=== PATIENT | male | born 1930 | race Caucasian/White ===

== ENCOUNTER → 2018-01-24 | Outpatient (CLI) | payer MEDICARE, BC ==
[~2018-01-24] MED LIST: COR12 PO; FINA5TAB11 PO; FURO40TA5 PO; SPIR25TA4 PO; [UNRECOGNIZED DRUG - OTHER]; [UNRECOGNIZED DRUG - OTHER]
== END | disposition home or self-care (01) ==
LOC: CT 08:31
PROVIDERS: ATTEND Psychiatry & Neurology Neurology
DX: I67.82 Cerebral ischemia (principal); M48.02 Spinal stenosis, cervical region; M48.061 Spinal stenosis, lumbar region without neurogenic claudication; M51.36 Other intervertebral disc degeneration, lumbar region
CPT/HCPCS: 70450; 72125; 72131

== ENCOUNTER → 2018-01-28 | Outpatient (CLI) | payer MEDICARE, BC | END | disposition home or self-care (01) | LOC: RAD 11:51 | PROVIDERS: ATTEND Specialist | DX: R06.02 Shortness of breath (principal); Z95.810 Presence of automatic (implantable) cardiac defibrillator | CPT/HCPCS: 71046 ==

== ENCOUNTER 2018-02-09 15:18 | Emergency (ER) | payer MEDICARE, BC ==
[~2018-02-09] VITALS: Ht 182.9 cm; Wt 73.0 kg
[2018-02-09 15:54] LABS: BASOPHILS % 0.2 % (0.0-2.0); EOSINOPHILS % 0.5 % (0.0-5.0); HEMATOCRIT. 35.5 % (42.0-52.0); HEMOGLOBIN. 12.1 g/dL (14.0-18.0); LYMPHOCYTES % 14.5 % (20.0-50.0); MEAN CORPUSCULAR HEMOGLOBIN 32.3 pg (28.0-32.0); MEAN CORPUSCULAR VOLUME 94.6 fL (80.0-94.0); MEAN PLATELET VOLUME 9.7 fl (7.4-10.4); MONOCYTES % 12.1 % (2.0-8.0); NEUTROPHILS % 72.7 % (40.0-76.0); PLATELET 159 x1000/uL (130-400); RED BLOOD CELL COUNT 3.75 mill/uL (4.7-6.1); RED CELL DISTRIBUTION WIDTH 13.4 % (11.6-14.6)
[2018-02-09 15:57] LABS: CHLORIDE 103 mEq/L (98-107)
[2018-02-09] MEDS ORDERED: TRAMADOL 50MG TABLET PO ONE (16:00)
[2018-02-09] MEDS ORDERED: ONDANSETRON 4MG ODT PO ONE (16:00)
[2018-02-09 16:01] LABS: PARTIAL THROMBOPLASTIN TIME 24.7 sec (23.4-31.0); PROTHROMBIN TIME 10.4 sec (9.4-11.6)
[2018-02-09 17:04] VITALS: BP 136/70
== END 2018-02-09 17:56 | disposition home or self-care (01) ==
LOC: ER 16:20
DX: M54.12 Radiculopathy, cervical region (principal); M48.02 Spinal stenosis, cervical region; R11.2 Nausea with vomiting, unspecified; I10 Essential (primary) hypertension; Z95.0 Presence of cardiac pacemaker; Z95.810 Presence of automatic (implantable) cardiac defibrillator
CPT/HCPCS: 36415; 71045; 80053; 83690; 83880; 84443; 85025; 85610; 85730; 93005; 99285; Q0162

== ENCOUNTER 2018-07-10 16:20 | Inpatient (IN) | payer MEDICARE, BC ==
[~2018-07-10] VITALS: Ht 182.9 cm; Wt 72.1 kg
[~2018-07-10 16:20] MED LIST changes: -SPIR25TA4 PO; +SPIR25TA6 PO
[2018-07-10 16:25] VITALS: BP 122/77
[2018-07-10 17:50] VITALS: BP 122/77
[2018-07-10] MEDS ORDERED: CLONIDINE 0.1MG TABLET PO PRN (18:30)
[2018-07-10] MEDS ORDERED: CLONIDINE 0.2MG TABLET PO PRN (18:30)
[2018-07-10 20:00] VITALS: BP 119/75
[2018-07-10 20:06] LABS: CHLORIDE 102 mEq/L (98-107)
[2018-07-10 20:35] VITALS: BP 134/81
[2018-07-10] MEDS: FAMOTIDINE 20MG TABLET PO SCH (21:11)
[2018-07-10] MEDS: CARVEDILOL 12.5MG TABLET PO SCH (21:11)
[2018-07-10] MEDS: AMIODARONE HCL 200 MG TABLET PO SCH (21:58)
[2018-07-11] MEDS ORDERED: AMIODARONE HCL 200 MG TABLET PO SCH (06:00)
[2018-07-11 07:08] LABS: PARTIAL THROMBOPLASTIN TIME 26.6 sec (23.4-31.0); PROTHROMBIN TIME 10.3 sec (9.1-11.1)
[2018-07-11 07:09] LABS: BASOPHILS % 0.2 % (0.0-2.0); EOSINOPHILS % 0.6 % (0.0-5.0); HEMATOCRIT. 33.9 % (42.0-52.0); HEMOGLOBIN. 11.5 g/dL (14.0-18.0); LYMPHOCYTES % 12.5 % (20.0-50.0); MEAN CORPUSCULAR HEMOGLOBIN 32.3 pg (28.0-32.0); MEAN CORPUSCULAR VOLUME 95.1 fL (80.0-94.0); NEUTROPHILS % 73.7 % (40.0-76.0); PLATELET 147 x1000/uL (130-400); RED BLOOD CELL COUNT 3.57 mill/uL (4.7-6.1); RED CELL DISTRIBUTION WIDTH 13.3 % (11.6-14.6)
[2018-07-11 07:49] LABS: CHLORIDE 104 mEq/L (98-107)
[2018-07-11 08:06] VITALS: BP 84/47
[2018-07-11 08:11] LABS: PHOSPHORUS 3.2 mg/dL (2.5-4.9)
[2018-07-11] MEDS ORDERED: ACETAMINOPHEN 325MG TABLET PO PRN (09:00)
[2018-07-11] MEDS: CARVEDILOL 12.5MG TABLET PO SCH ×2 (09:00→20:52)
[2018-07-11] MEDS: SPIRONOLACTONE 25MG TABLET PO SCH ×2 (09:00→17:00)
[2018-07-11] MEDS: AMIODARONE HCL 200 MG TABLET PO SCH ×2 (09:47→20:53)
[2018-07-11] MEDS: ASPIRIN 81MG EC TABLET PO SCH (09:48)
[2018-07-11] MEDS: DOCUSATE SODIUM 250MG CAPSULE PO SCH ×2 (09:48→17:55)
[2018-07-11] MEDS: FINASTERIDE 5MG TABLET PO SCH (09:48)
[2018-07-11] MEDS: FUROSEMIDE 40MG TABLET PO SCH (09:48)
[2018-07-11] MEDS: ENTRESTO PO SCH (09:49)
[2018-07-11 10:28] VITALS: BP_SYST 107; BP_SYST 132; BP_SYST 133; BP_DIAS 60; BP_DIAS 74; BP_DIAS 76
[2018-07-11 20:00] VITALS: BP 95/57
[2018-07-11] MEDS: FAMOTIDINE 20MG TABLET PO SCH (20:53)
[2018-07-12 08:00] VITALS: BP 108/62
[2018-07-12] MEDS: FINASTERIDE 5MG TABLET PO SCH (08:54)
[2018-07-12] MEDS: DOCUSATE SODIUM 250MG CAPSULE PO SCH ×2 (08:54→17:35)
[2018-07-12] MEDS: ASPIRIN 81MG EC TABLET PO SCH (08:54)
[2018-07-12] MEDS: SPIRONOLACTONE 25MG TABLET PO SCH ×2 (08:55→17:35)
[2018-07-12] MEDS: FUROSEMIDE 40MG TABLET PO SCH (08:55)
[2018-07-12] MEDS: AMIODARONE HCL 200 MG TABLET PO SCH ×2 (08:55→20:56)
[2018-07-12] MEDS: CARVEDILOL 12.5MG TABLET PO SCH ×2 (08:56→20:56)
[2018-07-12] MEDS: ENTRESTO PO SCH (09:01)
[2018-07-12] MEDS ORDERED: LACTULOSE 20G/30ML UDC PO PRN (13:00)
[2018-07-12] MEDS: LACTULOSE 20G/30ML UDC PO SCH ×3 (13:15→20:57)
[2018-07-12 16:00] VITALS: BP_SYST 106; BP_SYST 91; BP_SYST 96; BP_DIAS 54; BP_DIAS 56; BP_DIAS 63
[2018-07-12] MEDS: DOCUSATE SODIUM 100MG CAPSULE PO SCH (17:35)
[2018-07-12 20:00] VITALS: BP 93/54
[2018-07-12] MEDS: FAMOTIDINE 20MG TABLET PO SCH (20:56)
[2018-07-12] MEDS: POLYETHYLENE GLYCOL 3350 (17GM) 1 DOSE PACK PO SCH (20:57)
[2018-07-13 07:38] LABS: HEMATOCRIT. 35.8 % (42.0-52.0); HEMOGLOBIN. 11.8 g/dL (14.0-18.0); MEAN CORPUSCULAR HEMOGLOBIN 31.9 pg (28.0-32.0); MEAN CORPUSCULAR VOLUME 96.4 fL (80.0-94.0); MEAN PLATELET VOLUME 10.5 fl (7.4-10.4); PLATELET 147 x1000/uL (130-400); RED BLOOD CELL COUNT 3.72 mill/uL (4.7-6.1); RED CELL DISTRIBUTION WIDTH 13.7 % (11.6-14.6)
[2018-07-13 08:00] VITALS: BP 95/57
[2018-07-13 08:16] LABS: VITAMIN B12 SERUM 428 pg/mL (211-911)
[2018-07-13 08:19] LABS: PHOSPHORUS 3.4 mg/dL (2.5-4.9)
[2018-07-13 08:21] LABS: FOLIC ACID (FOLATE) SERUM > 20.00 ng/mL (>5.38)
[2018-07-13] MEDS: CARVEDILOL 12.5MG TABLET PO SCH ×2 (09:00→21:35)
[2018-07-13] MEDS: AMIODARONE HCL 200 MG TABLET PO SCH ×2 (09:43→21:35)
[2018-07-13] MEDS: FINASTERIDE 5MG TABLET PO SCH (09:43)
[2018-07-13] MEDS: SPIRONOLACTONE 25MG TABLET PO SCH ×2 (09:45→17:57)
[2018-07-13] MEDS: FUROSEMIDE 40MG TABLET PO SCH (09:45)
[2018-07-13] MEDS: ASPIRIN 81MG EC TABLET PO SCH (09:46)
[2018-07-13] MEDS: DOCUSATE SODIUM 100MG CAPSULE PO SCH ×2 (09:46→17:00)
[2018-07-13] MEDS: DOCUSATE SODIUM 250MG CAPSULE PO SCH ×2 (09:46→17:57)
[2018-07-13] MEDS: ENTRESTO PO SCH (09:48)
[2018-07-13 11:44] LABS: PLATELET ESTIMATE NORMAL
[2018-07-13 12:53] LABS: FERRITIN 36 ng/mL (22-322)
[2018-07-13] MEDS: CYANOCOBALAMIN 1000MCG/ML VIAL IM SCH (17:57)
[2018-07-13 20:00] VITALS: BP 127/77
[2018-07-13] MEDS: POLYETHYLENE GLYCOL 3350 (17GM) 1 DOSE PACK PO SCH (21:00)
[2018-07-13] MEDS: FAMOTIDINE 20MG TABLET PO SCH (21:36)
[2018-07-13 22:00] VITALS: BP_SYST 108; BP_SYST 87; BP_DIAS 53; BP_DIAS 64
[2018-07-14 08:00] VITALS: BP 101/60
[2018-07-14] MEDS: CARVEDILOL 12.5MG TABLET PO SCH ×2 (09:00→21:00)
[2018-07-14] MEDS: DOCUSATE SODIUM 250MG CAPSULE PO SCH (09:00)
[2018-07-14] MEDS: FUROSEMIDE 40MG TABLET PO SCH (09:27)
[2018-07-14] MEDS: AMIODARONE HCL 200 MG TABLET PO SCH ×2 (09:27→21:43)
[2018-07-14] MEDS: ENTRESTO PO SCH (09:27)
[2018-07-14] MEDS: DOCUSATE SODIUM 100MG CAPSULE PO SCH ×2 (09:27→17:00)
[2018-07-14] MEDS: SPIRONOLACTONE 25MG TABLET PO SCH ×2 (09:28→17:57)
[2018-07-14] MEDS: ASPIRIN 81MG EC TABLET PO SCH (09:28)
[2018-07-14] MEDS: CYANOCOBALAMIN 1000MCG/ML VIAL IM SCH (09:32)
[2018-07-14] MEDS: FINASTERIDE 5MG TABLET PO SCH (09:36)
[2018-07-14 20:00] VITALS: BP 97/57
[2018-07-14 20:30] VITALS: BP_SYST 91; BP_SYST 94; BP_DIAS 58; BP_DIAS 60
[2018-07-14] MEDS: POLYETHYLENE GLYCOL 3350 (17GM) 1 DOSE PACK PO SCH (21:43)
[2018-07-14] MEDS: FAMOTIDINE 20MG TABLET PO SCH (21:43)
[2018-07-15 07:54] VITALS: BP 137/78
[2018-07-15] MEDS: FERROUS SULFATE 325MG TABLET PO SCH ×3 (08:49→18:03)
[2018-07-15] MEDS: FINASTERIDE 5MG TABLET PO SCH (08:50)
[2018-07-15] MEDS: SPIRONOLACTONE 25MG TABLET PO SCH ×2 (08:50→17:00)
[2018-07-15] MEDS: AMIODARONE HCL 200 MG TABLET PO SCH ×2 (08:50→21:52)
[2018-07-15] MEDS: ASPIRIN 81MG EC TABLET PO SCH (08:51)
[2018-07-15] MEDS: DOCUSATE SODIUM 100MG CAPSULE PO SCH ×2 (08:51→18:03)
[2018-07-15] MEDS: FUROSEMIDE 40MG TABLET PO SCH (08:51)
[2018-07-15] MEDS: ENTRESTO PO SCH (08:52)
[2018-07-15] MEDS: CYANOCOBALAMIN 1000MCG/ML VIAL IM SCH (08:54)
[2018-07-15] MEDS: CARVEDILOL 12.5MG TABLET PO SCH ×2 (08:54→21:00)
[2018-07-15 20:00] VITALS: BP 111/71
[2018-07-15 20:30] VITALS: BP_SYST 108; BP_SYST 94; BP_DIAS 52; BP_DIAS 57
[2018-07-15] MEDS: FAMOTIDINE 20MG TABLET PO SCH (21:52)
[2018-07-15] MEDS: POLYETHYLENE GLYCOL 3350 (17GM) 1 DOSE PACK PO SCH (21:52)
[2018-07-16 07:31] LABS: BASOPHILS % 0.1 % (0.0-2.0); EOSINOPHILS % 0.8 % (0.0-5.0); HEMATOCRIT. 36.6 % (42.0-52.0); HEMOGLOBIN. 12.1 g/dL (14.0-18.0); LYMPHOCYTES % 19.9 % (20.0-50.0); MEAN CORPUSCULAR HEMOGLOBIN 31.5 pg (28.0-32.0); MEAN CORPUSCULAR VOLUME 95.8 fL (80.0-94.0); MEAN PLATELET VOLUME 10.4 fl (7.4-10.4); MONOCYTES % 14.8 % (2.0-8.0); NEUTROPHILS % 64.4 % (40.0-76.0); PLATELET 159 x1000/uL (130-400); RED BLOOD CELL COUNT 3.82 mill/uL (4.7-6.1); RED CELL DISTRIBUTION WIDTH 13.9 % (11.6-14.6)
[2018-07-16 07:50] VITALS: BP 102/58
[2018-07-16 07:57] LABS: CHLORIDE 101 mEq/L (98-107)
[2018-07-16 08:17] LABS: PHOSPHORUS 2.9 mg/dL (2.5-4.9)
[2018-07-16] MEDS: CYANOCOBALAMIN 1000MCG/ML VIAL IM SCH (08:30)
[2018-07-16] MEDS: FERROUS SULFATE 325MG TABLET PO SCH ×3 (08:30→16:58)
[2018-07-16] MEDS: FUROSEMIDE 40MG TABLET PO SCH (08:31)
[2018-07-16] MEDS: DOCUSATE SODIUM 100MG CAPSULE PO SCH ×2 (08:31→16:58)
[2018-07-16] MEDS: ASPIRIN 81MG EC TABLET PO SCH (08:31)
[2018-07-16] MEDS: FINASTERIDE 5MG TABLET PO SCH (08:31)
[2018-07-16] MEDS: SPIRONOLACTONE 25MG TABLET PO SCH ×2 (08:31→16:58)
[2018-07-16] MEDS: AMIODARONE HCL 200 MG TABLET PO SCH ×2 (08:31→21:10)
[2018-07-16] MEDS: ENTRESTO PO SCH (08:32)
[2018-07-16] MEDS: CARVEDILOL 12.5MG TABLET PO SCH ×2 (09:00→21:00)
[2018-07-16] MEDS: ZINC SULFATE 220 MG ( 50 ) CAPSULE PO SCH (14:30)
[2018-07-16] MEDS ORDERED: SODIUM CHLORIDE 0.9% 500 ML IV SCH (17:00)
[2018-07-16 19:49] LABS: CLARITY URINE CLEAR (CLEAR); COLOR URINE YELLOW (YELLOW); KETONES URINE NEGATIVE (NEGATIVE); LEUKOCYTE ESTERASE URINE NEGATIVE (NEGATIVE); NITRITE URINE NEGATIVE (NEGATIVE); OCCULT BLOOD URINE NEGATIVE (NEGATIVE); PROTEIN URINE NEGATIVE (NEGATIVE); SPECIFIC GRAVITY URINE 1.014 (1.005-1.030); UROBILINOGEN URINE 0.2 E.U./dL (0.2-1.0)
[2018-07-16 20:00] VITALS: BP_SYST 104; BP_SYST 70; BP_SYST 94; BP_DIAS 43; BP_DIAS 59; BP_DIAS 60
[2018-07-16] MEDS: POLYETHYLENE GLYCOL 3350 (17GM) 1 DOSE PACK PO SCH (21:00)
[2018-07-16] MEDS: FAMOTIDINE 20MG TABLET PO SCH (21:09)
[2018-07-17 07:11] LABS: HEMATOCRIT. 36.1 % (42.0-52.0); HEMOGLOBIN. 12.1 g/dL (14.0-18.0); MEAN CORPUSCULAR HEMOGLOBIN 31.9 pg (28.0-32.0); MEAN CORPUSCULAR VOLUME 94.8 fL (80.0-94.0); MEAN PLATELET VOLUME 10.3 fl (7.4-10.4); PLATELET 159 x1000/uL (130-400); RED CELL DISTRIBUTION WIDTH 14.1 % (11.6-14.6)
[2018-07-17 07:47] VITALS: BP 79/49
[2018-07-17 08:01] LABS: PHOSPHORUS 2.6 mg/dL (2.5-4.9)
[2018-07-17] MEDS: DOCUSATE SODIUM 100MG CAPSULE PO SCH ×2 (09:00→17:11)
[2018-07-17] MEDS: AMIODARONE HCL 200 MG TABLET PO SCH ×2 (09:00→22:53)
[2018-07-17] MEDS: CARVEDILOL 12.5MG TABLET PO SCH ×3 (09:00→21:00)
[2018-07-17 09:15] VITALS: BP 106/65
[2018-07-17] MEDS: FINASTERIDE 5MG TABLET PO SCH (09:48)
[2018-07-17] MEDS: ENTRESTO PO SCH (09:48)
[2018-07-17] MEDS: ZINC SULFATE 220 MG ( 50 ) CAPSULE PO SCH (09:49)
[2018-07-17] MEDS: FERROUS SULFATE 325MG TABLET PO SCH ×3 (09:49→17:11)
[2018-07-17] MEDS: SPIRONOLACTONE 25MG TABLET PO SCH (09:49)
[2018-07-17] MEDS: FAMOTIDINE 20MG TABLET PO SCH (09:49)
[2018-07-17] MEDS: ASPIRIN 81MG EC TABLET PO SCH (09:49)
[2018-07-17 13:21] LABS: PLATELET ESTIMATE NORMAL
[2018-07-17] MEDS ORDERED: SODIUM CHLORIDE 0.9% 500 ML IV ONE (15:45)
[2018-07-17 20:00] VITALS: BP_SYST 100; BP_SYST 80; BP_SYST 91; BP_DIAS 48; BP_DIAS 55; BP_DIAS 56
[2018-07-17] MEDS: POLYETHYLENE GLYCOL 3350 (17GM) 1 DOSE PACK PO SCH (22:53)
[2018-07-17] MEDS ORDERED: SODIUM CHLORIDE 0.9% 500 ML IV NR (23:11)
[2018-07-18 06:55] LABS: CLARITY URINE CLEAR (CLEAR); COLOR URINE YELLOW (YELLOW); KETONES URINE NEGATIVE (NEGATIVE); LEUKOCYTE ESTERASE URINE NEGATIVE (NEGATIVE); NITRITE URINE NEGATIVE (NEGATIVE); OCCULT BLOOD URINE NEGATIVE (NEGATIVE); PROTEIN URINE NEGATIVE (NEGATIVE); SPECIFIC GRAVITY URINE 1.007 (1.005-1.030); UROBILINOGEN URINE 0.2 E.U./dL (0.2-1.0)
[2018-07-18 07:21] LABS: HEMATOCRIT. 35.9 % (42.0-52.0); HEMOGLOBIN. 11.8 g/dL (14.0-18.0); MEAN CORPUSCULAR HEMOGLOBIN 31.4 pg (28.0-32.0); MEAN CORPUSCULAR VOLUME 95.8 fL (80.0-94.0); MEAN PLATELET VOLUME 10.3 fl (7.4-10.4); PLATELET 159 x1000/uL (130-400); RED BLOOD CELL COUNT 3.75 mill/uL (4.7-6.1); RED CELL DISTRIBUTION WIDTH 13.8 % (11.6-14.6)
[2018-07-18 07:52] LABS: CHLORIDE 104 mEq/L (98-107)
[2018-07-18 08:00] VITALS: BP 99/57
[2018-07-18] MEDS: AMIODARONE HCL 200 MG TABLET PO SCH ×2 (09:00→20:47)
[2018-07-18] MEDS: CARVEDILOL 12.5MG TABLET PO SCH ×2 (09:00→20:47)
[2018-07-18] MEDS: FINASTERIDE 5MG TABLET PO SCH (09:50)
[2018-07-18] MEDS: ASPIRIN 81MG EC TABLET PO SCH (09:50)
[2018-07-18] MEDS: ZINC SULFATE 220 MG ( 50 ) CAPSULE PO SCH (09:50)
[2018-07-18] MEDS: DOCUSATE SODIUM 100MG CAPSULE PO SCH ×2 (09:51→17:36)
[2018-07-18] MEDS: FERROUS SULFATE 325MG TABLET PO SCH ×3 (09:51→17:33)
[2018-07-18] MEDS: ENTRESTO PO SCH (09:53)
[2018-07-18 12:07] LABS: PLATELET ESTIMATE NORMAL
[2018-07-18 13:06] LABS: 25-HYDROXY VITAMIN D3 23 ng/mL (.)
[2018-07-18 15:45] VITALS: BP_SYST 88; BP_SYST 89; BP_SYST 98; BP_DIAS 51; BP_DIAS 54; BP_DIAS 66
[2018-07-18] MEDS ORDERED: ERGOCALCIFEROL 50000UNITS CAPSULE PO SCH (17:00)
[2018-07-18 20:00] VITALS: BP_SYST 106; BP_SYST 121; BP_DIAS 64; BP_DIAS 74; BP_DIAS 75
[2018-07-18] MEDS ORDERED: SORBITOL 70% SOLN 30ML PO NR (20:15)
[2018-07-18] MEDS: POLYETHYLENE GLYCOL 3350 (17GM) 1 DOSE PACK PO SCH (20:47)
[2018-07-18] MEDS: FAMOTIDINE 20MG TABLET PO SCH (20:47)
[2018-07-18] MEDS ORDERED: SODIUM POLYSTYRENE SULFONATE 15 G/60 ML BOT PO NR (21:30)
[2018-07-19 07:44] LABS: HEMATOCRIT. 33.4 % (42.0-52.0); HEMOGLOBIN. 11.3 g/dL (14.0-18.0); MEAN CORPUSCULAR HEMOGLOBIN 32.4 pg (28.0-32.0); MEAN CORPUSCULAR VOLUME 95.7 fL (80.0-94.0); MEAN PLATELET VOLUME 9.4 fl (7.4-10.4); PLATELET 148 x1000/uL (130-400); RED BLOOD CELL COUNT 3.49 mill/uL (4.7-6.1); RED CELL DISTRIBUTION WIDTH 13.9 % (11.6-14.6)
[2018-07-19 08:05] LABS: PHOSPHORUS 3.4 mg/dL (2.5-4.9)
[2018-07-19 08:08] VITALS: BP 109/72
[2018-07-19] MEDS: CARVEDILOL 12.5MG TABLET PO SCH ×2 (08:31→21:00)
[2018-07-19] MEDS: ZINC SULFATE 220 MG ( 50 ) CAPSULE PO SCH (08:32)
[2018-07-19] MEDS: ASPIRIN 81MG EC TABLET PO SCH (08:32)
[2018-07-19] MEDS: FINASTERIDE 5MG TABLET PO SCH (08:32)
[2018-07-19] MEDS: FERROUS SULFATE 325MG TABLET PO SCH ×3 (08:32→16:54)
[2018-07-19] MEDS: DOCUSATE SODIUM 100MG CAPSULE PO SCH ×2 (08:32→16:54)
[2018-07-19] MEDS: AMIODARONE HCL 200 MG TABLET PO SCH ×2 (08:32→21:38)
[2018-07-19 09:38] LABS: PLATELET ESTIMATE NORMAL
[2018-07-19] MEDS: FLUDROCORTISONE ACETATE 0.1MG TABLET PO SCH ×2 (13:21→21:38)
[2018-07-19 16:17] VITALS: BP 117/97
[2018-07-19 20:00] VITALS: BP_SYST 104; BP_SYST 89; BP_SYST 99; BP_DIAS 47; BP_DIAS 57; BP_DIAS 60
[2018-07-19] MEDS: POLYETHYLENE GLYCOL 3350 (17GM) 1 DOSE PACK PO SCH (21:00)
[2018-07-19] MEDS: FAMOTIDINE 20MG TABLET PO SCH (21:38)
[2018-07-20 07:06] LABS: HEMATOCRIT. 32.7 % (42.0-52.0); HEMOGLOBIN. 11.4 g/dL (14.0-18.0); MEAN CORPUSCULAR HEMOGLOBIN 33.1 pg (28.0-32.0); MEAN CORPUSCULAR VOLUME 95.3 fL (80.0-94.0); PLATELET 141 x1000/uL (130-400); RED BLOOD CELL COUNT 3.43 mill/uL (4.7-6.1); RED CELL DISTRIBUTION WIDTH 13.9 % (11.6-14.6)
[2018-07-20 08:19] VITALS: BP 114/60
[2018-07-20 08:29] LABS: PHOSPHORUS 3.6 mg/dL (2.5-4.9)
[2018-07-20] MEDS: ZINC SULFATE 220 MG ( 50 ) CAPSULE PO SCH (09:50)
[2018-07-20] MEDS: FLUDROCORTISONE ACETATE 0.1MG TABLET PO SCH (09:50)
[2018-07-20] MEDS: DOCUSATE SODIUM 100MG CAPSULE PO SCH (09:50)
[2018-07-20] MEDS: ASPIRIN 81MG EC TABLET PO SCH (09:50)
[2018-07-20] MEDS: FINASTERIDE 5MG TABLET PO SCH (09:50)
[2018-07-20] MEDS: CARVEDILOL 12.5MG TABLET PO SCH (09:51)
[2018-07-20] MEDS: AMIODARONE HCL 200 MG TABLET PO SCH (09:51)
[2018-07-20] MEDS: FERROUS SULFATE 325MG TABLET PO SCH ×2 (09:51→13:09)
[2018-07-20 10:34] LABS: PLATELET ESTIMATE NORMAL
[2018-07-20 12:31] VITALS: BP 114/60
[2018-07-20 13:30] VITALS: BP_SYST 105; BP_SYST 109; BP_SYST 95; BP_DIAS 52; BP_DIAS 64; BP_DIAS 67
== END 2018-07-20 13:50 | disposition home health service (06) | DRG 551 ==
PROVIDERS: ADMIT Physical Medicine & Rehabilitation Spinal Cord Injury Medicine; ATTEND Internal Medicine
DX: M48.02 Spinal stenosis, cervical region (principal); G82.50 Quadriplegia, unspecified; E46 Unspecified protein-calorie malnutrition; N17.9 Acute kidney failure, unspecified; N18.4 Chronic kidney disease, stage 4 (severe); I47.2 Ventricular tachycardia; W18.30XA Fall on same level, unspecified, initial encounter; S00.03XA Contusion of scalp, initial encounter; G31.84 Mild cognitive impairment of uncertain or unknown etiology; I12.9 Hypertensive chronic kidney disease with stage 1 through stage 4 chronic kidney disease, or unspecified chronic kidney disease; E78.00 Pure hypercholesterolemia, unspecified; R53.81 Other malaise; I25.5 Ischemic cardiomyopathy; D50.9 Iron deficiency anemia, unspecified; E55.9 Vitamin D deficiency, unspecified; E87.5 Hyperkalemia; F39 Unspecified mood [affective] disorder; I95.1 Orthostatic hypotension; F32.9 Major depressive disorder, single episode, unspecified; I25.10 Atherosclerotic heart disease of native coronary artery without angina pectoris; M48.061 Spinal stenosis, lumbar region without neurogenic claudication; M50.10 Cervical disc disorder with radiculopathy, unspecified cervical region; S80.01XA Contusion of right knee, initial encounter; S80.02XA Contusion of left knee, initial encounter; W18.39XA Other fall on same level, initial encounter; Y93.89 Activity, other specified; Z95.0 Presence of cardiac pacemaker; Z95.5 Presence of coronary angioplasty implant and graft; Y92.89 Other specified places as the place of occurrence of the external cause; Y99.8 Other external cause status; Z79.82 Long term (current) use of aspirin; Z79.899 Other long term (current) drug therapy; Z68.21 Body mass index [BMI] 21.0-21.9, adult
CPT/HCPCS: 36415; 80048; 82270; 82306; 82570; 82607; 82728; 82746; 83540; 83550; 83735; 83935; 84100; 84132; 84300; 84443; 84630; 92523; 93005; 93970; 97110; 97112; 97116; 97150; 97162; 97166; 97530; 97535; G0515; J3420; J7040

== ENCOUNTER 2018-09-04 15:26 | Inpatient (IN) | payer MEDICARE, BC ==
[~2018-09-04] VITALS: Ht 182.9 cm; Wt 80.1 kg
[2018-09-04] MEDS ORDERED: ASPI-1159 PO (15:43)
[2018-09-04] MEDS ORDERED: MIDO5TAB PO (15:43)
[2018-09-04] MEDS ORDERED: FAMO40TA7 PO (15:43)
[2018-09-04] MEDS ORDERED: ASPIRIN 81MG TABLET PO ONE (16:00)
[2018-09-04] MEDS ORDERED: FUROSEMIDE 40MG/4ML VIAL IV ONE (16:00)
[2018-09-04 16:53] LABS: BASOPHILS % 0.4 % (0.0-2.0); EOSINOPHILS % 0.3 % (0.0-5.0); HEMATOCRIT. 31.8 % (42.0-52.0); HEMOGLOBIN. 10.4 g/dL (14.0-18.0); LYMPHOCYTES % 9.7 % (20.0-50.0); MEAN CORPUSCULAR HEMOGLOBIN 31.2 pg (28.0-32.0); MEAN CORPUSCULAR VOLUME 95.1 fL (80.0-94.0); MONOCYTES % 8.9 % (2.0-8.0); NEUTROPHILS % 80.7 % (40.0-76.0); PLATELET 159 x1000/uL (130-400); RED BLOOD CELL COUNT 3.34 mill/uL (4.7-6.1); RED CELL DISTRIBUTION WIDTH 14.9 % (11.6-14.6)
[2018-09-04 17:11] LABS: CHLORIDE 108 mEq/L (98-107)
[2018-09-04 22:30] VITALS: BP 133/87
[2018-09-05] VITALS (12 sets, daily range): BP systolic 104–140; BP diastolic 68–88
[2018-09-05] MEDS ORDERED: MIDODRINE HCL 5MG TABLET PO SCH (06:00)
[2018-09-05 07:08] LABS: BASOPHILS % 0.3 % (0.0-2.0); EOSINOPHILS % 1.3 % (0.0-5.0); HEMATOCRIT. 31.5 % (42.0-52.0); HEMOGLOBIN. 10.4 g/dL (14.0-18.0); LYMPHOCYTES % 18.8 % (20.0-50.0); MEAN CORPUSCULAR HEMOGLOBIN 30.9 pg (28.0-32.0); MEAN CORPUSCULAR VOLUME 93.9 fL (80.0-94.0); MONOCYTES % 14.1 % (2.0-8.0); NEUTROPHILS % 65.5 % (40.0-76.0); PLATELET 149 x1000/uL (130-400); RED BLOOD CELL COUNT 3.36 mill/uL (4.7-6.1)
[2018-09-05 08:00] LABS: CHLORIDE 108 mEq/L (98-107)
[2018-09-05 08:12] LABS: LDL CHOLESTEROL 66 mg/dL (5-100)
[2018-09-05 08:13] LABS: CREATINE KINASE 83 IU/L (39-308); CREATINE KINASE MB FRACTION 2.8 ng/mL (0.5-3.6)
[2018-09-05 08:14] LABS: HDL CHOLESTEROL 37 mg/dL (40-59)
[2018-09-05] MEDS ORDERED: AMIODARONE HCL 200 MG TABLET PO SCH (09:00)
[2018-09-05] MEDS: POTASSIUM CHLORIDE 20MEQ TABLET SR PO SCH ×2 (09:36→17:35)
[2018-09-05] MEDS: ASPIRIN 81MG TABLET PO SCH (09:37)
[2018-09-05] MEDS: CARVEDILOL 6.25 MG TABLET PO SCH ×2 (09:37→20:57)
[2018-09-05] MEDS: FUROSEMIDE 100MG/10ML VIAL IVP SCH ×2 (09:38→17:35)
[2018-09-06] VITALS (9 sets, daily range): BP systolic 108–132; BP diastolic 61–86
[2018-09-06 07:27] LABS: BASOPHILS % 0.3 % (0.0-2.0); EOSINOPHILS % 1.1 % (0.0-5.0); MEAN CORPUSCULAR HEMOGLOBIN 31.2 pg (28.0-32.0); MEAN CORPUSCULAR VOLUME 93.8 fL (80.0-94.0); MEAN PLATELET VOLUME 10.1 fl (7.4-10.4); MONOCYTES % 12.4 % (2.0-8.0); NEUTROPHILS % 69.2 % (40.0-76.0); PLATELET 148 x1000/uL (130-400); RED BLOOD CELL COUNT 3.19 mill/uL (4.7-6.1); RED CELL DISTRIBUTION WIDTH 14.8 % (11.6-14.6)
[2018-09-06 07:41] LABS: CREATINE KINASE MB FRACTION 1.9 ng/mL (0.5-3.6)
[2018-09-06] MEDS: CARVEDILOL 6.25 MG TABLET PO SCH (09:00)
[2018-09-06] MEDS ORDERED: AMIODARONE HCL 200 MG TABLET PO SCH (09:00)
[2018-09-06] MEDS: POTASSIUM CHLORIDE 20MEQ TABLET SR PO SCH (09:28)
[2018-09-06] MEDS: ASPIRIN 81MG TABLET PO SCH (09:28)
[2018-09-06] MEDS: FUROSEMIDE 100MG/10ML VIAL IVP SCH (10:28)
[2018-09-06] MEDS ORDERED: ENTRESTO (SACUBITRIL/VALSARTAN) 24MG/26MG PO SCH (11:00)
[2018-09-06] MEDS ORDERED: FUROSEMIDE 40MG TABLET PO SCH (17:15)
== END 2018-09-06 15:45 | disposition home or self-care (01) | DRG 291 ==
LOC: ER 15:26 → EDBEDREQ 19:03 → ENRESERV 19:09 → 3WST 22:26
PROVIDERS: ADMIT Internal Medicine; ATTEND Internal Medicine
DX: I13.0 Hypertensive heart and chronic kidney disease with heart failure and stage 1 through stage 4 chronic kidney disease, or unspecified chronic kidney disease (principal); I50.33 Acute on chronic diastolic (congestive) heart failure; I47.2 Ventricular tachycardia; I42.0 Dilated cardiomyopathy; E78.00 Pure hypercholesterolemia, unspecified; I25.5 Ischemic cardiomyopathy; J44.9 Chronic obstructive pulmonary disease, unspecified; K57.90 Diverticulosis of intestine, part unspecified, without perforation or abscess without bleeding; N18.3 Chronic kidney disease, stage 3 (moderate); G89.29 Other chronic pain; I25.10 Atherosclerotic heart disease of native coronary artery without angina pectoris; M54.5 Low back pain; E78.5 Hyperlipidemia, unspecified; I49.5 Sick sinus syndrome; E87.5 Hyperkalemia; K21.9 Gastro-esophageal reflux disease without esophagitis; Z82.49 Family history of ischemic heart disease and other diseases of the circulatory system; Z86.79 Personal history of other diseases of the circulatory system; I25.2 Old myocardial infarction; Z95.810 Presence of automatic (implantable) cardiac defibrillator; Z95.5 Presence of coronary angioplasty implant and graft; Z79.82 Long term (current) use of aspirin; Z79.899 Other long term (current) drug therapy
CPT/HCPCS: 36415; 71045; 80048; 80061; 82550; 82553; 83735; 83880; 84443; 84484; 85379; 93005; 93970; 96374; 99285; J1940

== ENCOUNTER 2019-01-20 11:01 | Emergency (ER) | payer MEDICARE, BC ==
[~2019-01-20] VITALS: Ht 182.9 cm; Wt 71.0 kg
[~2019-01-20 11:01] MED LIST changes: +ASPI-1159 PO; -COR12 PO; -FINA5TAB11 PO; -SPIR25TA6 PO; -[UNRECOGNIZED DRUG - OTHER]; -[UNRECOGNIZED DRUG - OTHER]
[2019-01-20 12:31] LABS: CHLORIDE 105 mEq/L (98-107)
[2019-01-20 12:32] LABS: HEMATOCRIT. 32.4 % (42.0-52.0); HEMOGLOBIN. 10.7 g/dL (14.0-18.0); MEAN CORPUSCULAR HEMOGLOBIN 31.1 pg (28.0-32.0); MEAN CORPUSCULAR VOLUME 94.4 fL (80.0-94.0); MEAN PLATELET VOLUME 9.8 fl (7.4-10.4); PLATELET 127 x1000/uL (130-400); RED BLOOD CELL COUNT 3.44 mill/uL (4.7-6.1)
[2019-01-20 12:35] LABS: INR 1.1; PROTHROMBIN TIME 10.8 sec (9.6-11.0)
[2019-01-20 13:22] LABS: PLATELET ESTIMATE NORMAL
[2019-01-20 14:50] VITALS: BP 106/55
== END 2019-01-20 15:00 | disposition home or self-care (01) ==
LOC: ER 11:01
DX: M25.562 Pain in left knee (principal); M25.561 Pain in right knee; M17.0 Bilateral primary osteoarthritis of knee; E78.00 Pure hypercholesterolemia, unspecified; I25.2 Old myocardial infarction; I13.0 Hypertensive heart and chronic kidney disease with heart failure and stage 1 through stage 4 chronic kidney disease, or unspecified chronic kidney disease; N18.9 Chronic kidney disease, unspecified; I50.9 Heart failure, unspecified; R73.9 Hyperglycemia, unspecified; D63.1 Anemia in chronic kidney disease; R94.39 Abnormal result of other cardiovascular function study; Z95.1 Presence of aortocoronary bypass graft; Z95.0 Presence of cardiac pacemaker; Z79.82 Long term (current) use of aspirin; W01.0XXA Fall on same level from slipping, tripping and stumbling without subsequent striking against object, initial encounter; Y93.89 Activity, other specified; Y92.018 Other place in single-family (private) house as the place of occurrence of the external cause
CPT/HCPCS: 36415; 71045; 73562; 83880; 84484; 93005; 99284

== ENCOUNTER 2019-01-21 22:44 | Inpatient (IN) | payer MEDICARE, BC ==
[~2019-01-21] VITALS: Ht 182.9 cm; Wt 81.2 kg
[2019-01-21] MEDS ORDERED: SODIUM CHLORIDE 0.9% 250 ML IV ONE (23:06)
[2019-01-21 23:33] LABS: HEMATOCRIT. 32.5 % (42.0-52.0); HEMOGLOBIN. 10.6 g/dL (14.0-18.0); MEAN CORPUSCULAR HEMOGLOBIN 30.5 pg (28.0-32.0); MEAN CORPUSCULAR VOLUME 93.9 fL (80.0-94.0); MEAN PLATELET VOLUME 10.5 fl (7.4-10.4); PLATELET 125 x1000/uL (130-400); RED BLOOD CELL COUNT 3.46 mill/uL (4.7-6.1)
[2019-01-21 23:35] LABS: CHLORIDE 101 mEq/L (98-107)
[2019-01-21 23:43] LABS: INR 1.1; PARTIAL THROMBOPLASTIN TIME 30.1 sec (23.4-31.0); PROTHROMBIN TIME 11.3 sec (9.6-11.0)
[2019-01-21 23:44] LABS: CREATINE KINASE 788 IU/L (39-308)
[2019-01-21 23:46] LABS: CREATINE KINASE MB FRACTION 1.6 ng/mL (0.5-3.6)
[2019-01-22] VITALS (9 sets, daily range): BP systolic 96–139; BP diastolic 60–97
[2019-01-22 00:35] LABS: PLATELET ESTIMATE NORMAL
[2019-01-22] MEDS ORDERED: FUROSEMIDE 20MG/2ML VIAL IVP ONE (00:45)
[2019-01-22 00:59] LABS: CLARITY URINE CLOUDY (CLEAR); COLOR URINE DARK YELLOW (YELLOW); KETONES URINE TRACE (NEGATIVE); LEUKOCYTE ESTERASE URINE NEGATIVE (NEGATIVE); NITRITE URINE NEGATIVE (NEGATIVE); OCCULT BLOOD URINE NEGATIVE (NEGATIVE); PROTEIN URINE 1+ (NEGATIVE)
[2019-01-22] MEDS ORDERED: ACETAMINOPHEN 325MG TABLET PO ONE (03:15)
[2019-01-22] MEDS ORDERED: DEXT 5%/0.45% NACL 1000ML 1,000 ML IV SCH (06:00)
[2019-01-22] MEDS ORDERED: SACU1TAB MT (08:45)
[2019-01-22] MEDS ORDERED: FINA1TAB18 PO (08:45)
[2019-01-22] MEDS ORDERED: AMIO100T4 MT (08:45)
[2019-01-22] MEDS ORDERED: FAMO40TA70 MT (08:45)
[2019-01-22] MEDS ORDERED: NITR0.4T49 SL (08:45)
[2019-01-22] MEDS ORDERED: SPIR25TA MT (08:45)
[2019-01-22] MEDS ORDERED: DOCU250C14 MT (08:45)
[2019-01-22] MEDS ORDERED: SODIUM CHLORIDE 0.45% 1,000 ML IV SCH (10:30)
[2019-01-22] MEDS: ASPIRIN 81MG EC TABLET PO SCH (11:18)
[2019-01-22 11:41] LABS: T4 FREE 1.67 ng/dL (0.76-1.46)
[2019-01-22 11:49] LABS: FOLIC ACID (FOLATE) SERUM >20 ng/mL ng/mL (>5.38)
[2019-01-22 12:01] LABS: VITAMIN B12 SERUM 1054 pg/mL (211-911)
[2019-01-22] MEDS: ACETAMINOPHEN 325MG TABLET PO PRN (12:58)
[2019-01-22] MEDS: PIPERACILLIN/TAZOBACTAM 2.25 G in DEXTROSE 5% WATER 50 ML IV SCH (18:06)
[2019-01-23] VITALS (13 sets, daily range): BP systolic 86–115; BP diastolic 53–79
[2019-01-23] MEDS: ACETAMINOPHEN 325MG TABLET PO PRN ×2 (00:44→09:43)
[2019-01-23] MEDS: PIPERACILLIN/TAZOBACTAM 2.25 G in DEXTROSE 5% WATER 50 ML IV SCH ×2 (00:46→09:44)
[2019-01-23 06:43] LABS: CHLORIDE 101 mEq/L (98-107); HEMATOCRIT. 34.1 % (42.0-52.0); HEMOGLOBIN. 11.2 g/dL (14.0-18.0); MEAN CORPUSCULAR HEMOGLOBIN 30.6 pg (28.0-32.0); MEAN CORPUSCULAR VOLUME 93.6 fL (80.0-94.0); PLATELET 114 x1000/uL (130-400); RED BLOOD CELL COUNT 3.65 mill/uL (4.7-6.1)
[2019-01-23 06:49] LABS: PHOSPHORUS 4.9 mg/dL (2.5-4.9)
[2019-01-23 06:55] LABS: CREATINE KINASE 414 IU/L (39-308)
[2019-01-23 06:59] LABS: CREATINE KINASE MB FRACTION < 1.0 ng/mL (0.5-3.6)
[2019-01-23] MEDS: ASPIRIN 81MG EC TABLET PO SCH (09:43)
[2019-01-23 10:21] LABS: PLATELET ESTIMATE DECREASED
[2019-01-23] MEDS ORDERED: CEFEPIME 1,000 MG in DEXTROSE 5% WATER 50 ML IV SCH ×2 (16:00→19:00)
[2019-01-23] MEDS ORDERED: PIPERACILLIN/TAZ 2.25G PREMIX 50 ML IV SCH (17:00)
[2019-01-24] VITALS (9 sets, daily range): BP systolic 102–143; BP diastolic 46–74
[2019-01-24 07:34] LABS: HEMOGLOBIN. 10.7 g/dL (14.0-18.0); MEAN CORPUSCULAR HEMOGLOBIN 30.4 pg (28.0-32.0); MEAN PLATELET VOLUME 11.5 fl (7.4-10.4); PLATELET 105 x1000/uL (130-400); RED BLOOD CELL COUNT 3.51 mill/uL (4.7-6.1); RED CELL DISTRIBUTION WIDTH 14.3 % (11.6-14.6)
[2019-01-24 07:39] LABS: CHLORIDE 102 mEq/L (98-107)
[2019-01-24] MEDS: ASPIRIN 81MG EC TABLET PO SCH (09:13)
[2019-01-24 09:31] LABS: INR 1.1; PROTHROMBIN TIME 10.9 sec (9.6-11.0)
[2019-01-24 09:40] LABS: PLATELET ESTIMATE DECREASED
[2019-01-24 14:01] LABS: BG BASE EXCESS -2.6 mmol/L (-2.0-2.0); BG CARBOXYHEMOGLOBIN 0.3 % (0.5-1.5); BG DEOXYHEMOGLOBIN 9.7 % (0.0-5.0); BG FRACTION INSPIRED OXYGEN 21; BG HCO3 ACT 21.1 mmol/L (22.0-26.0); BG METHEMOGLOBIN 0.2 % (0.0-1.5); BG OXYGEN SATURATION 90.3 % (92.0-98.5); BG OXYHEMOGLOBIN 89.8 % (94.0-97.0); BG PCO2 32.9 mmHg (35.0-45.0); BG PH 7.425 (7.350-7.450); BG PO2 61.7 mmHg (75.0-100.0); BG SAMPLE SITE RIGHT RADIAL; BG TOTAL HEMOGLOBIN 11.7 g/dL (12.0-18.0); BG VENT MODE ROOM AIR
== END 2019-01-24 15:44 | disposition home or self-care (01) | DRG 871 ==
LOC: ER 22:44 → 3WST 01-22 01:24 → EDBEDREQ 01-22 01:25 → EDBEDREQTM 01-22 01:25 → EDBEDREQDT 01-22 01:25 → CANRESERV 01-22 06:20 → ENRESERV 01-22 06:20 → 3WST 01-22 22:04
PROVIDERS: ADMIT Internal Medicine; ATTEND Internal Medicine
PROC: 4A00X4Z Measurement of Central Nervous Electrical Activity, External Approach (ICD-10-PCS; principal; 2019-01-23)
DX: A41.9 Sepsis, unspecified organism (principal); J18.9 Pneumonia, unspecified organism; G92 Toxic encephalopathy; N17.9 Acute kidney failure, unspecified; M62.82 Rhabdomyolysis; I13.0 Hypertensive heart and chronic kidney disease with heart failure and stage 1 through stage 4 chronic kidney disease, or unspecified chronic kidney disease; I42.0 Dilated cardiomyopathy; E78.00 Pure hypercholesterolemia, unspecified; I50.9 Heart failure, unspecified; N18.3 Chronic kidney disease, stage 3 (moderate); I25.5 Ischemic cardiomyopathy; Z66 Do not resuscitate; D64.9 Anemia, unspecified; D69.6 Thrombocytopenia, unspecified; E05.90 Thyrotoxicosis, unspecified without thyrotoxic crisis or storm; E78.5 Hyperlipidemia, unspecified; E86.0 Dehydration; G62.9 Polyneuropathy, unspecified; G89.29 Other chronic pain; I25.10 Atherosclerotic heart disease of native coronary artery without angina pectoris; K57.90 Diverticulosis of intestine, part unspecified, without perforation or abscess without bleeding; K80.20 Calculus of gallbladder without cholecystitis without obstruction; M48.061 Spinal stenosis, lumbar region without neurogenic claudication; R26.9 Unspecified abnormalities of gait and mobility; M54.12 Radiculopathy, cervical region; R29.6 Repeated falls; Z51.5 Encounter for palliative care; Z85.46 Personal history of malignant neoplasm of prostate; Z95.0 Presence of cardiac pacemaker; Z95.1 Presence of aortocoronary bypass graft; Z95.5 Presence of coronary angioplasty implant and graft; Z95.810 Presence of automatic (implantable) cardiac defibrillator; Z79.82 Long term (current) use of aspirin; Z79.899 Other long term (current) drug therapy
CPT/HCPCS: 36415; 36600; 71045; 72192; 73562; 76700; 82140; 82375; 82550; 82553; 82570; 82607; 82746; 82805; 83036; 83735; 83880; 84100; 84156; 84300; 84439; 84443; 84481; 84484; 85379; 87804; 92610; 93005; 96361; 96365; 96375; 97162; 97166; 97530; 99285; J0692; J1940; J2543; J7050; J7060; A4315